=== PATIENT | female | born 1995 | race Caucasian/White ===

== ENCOUNTER 2016-07-01 22:32 | Emergency (ER) | payer BC, OTHER ==
[~2016-07-01] VITALS: Ht 160 cm; Wt 61.2 kg
[~2016-07-01 22:32] MED LIST: BIRTH CONTROL1 EAC1; MACROBID100 M1 PO; MONISTAT DERM2% TP; PRENATAL1 TA2 PO; ZOFRAN ODT4 MG SL
[2016-07-01 23:00] LABS: BASO # 0.1 10*3/uL (0.0-0.1); BASO % 0.9 % (0.0-1.0); EOS # 0.2 10*3/uL (0.0-0.4); EOS % 2.1 % (1.0-4.0); HEMATOCRIT 36.6 % (37.0-47.0); HEMOGLOBIN 12.2 g/dl (12.0-16.0); LYMPH # 3.7 10*3/uL (1.3-4.4); LYMPH % 42.7 % (27.0-41.0); MEAN CELL VOLUME 86.1 fl (81.0-99.0); MEAN CORPUSCULAR HGB 28.7 pg (27.0-31.0); MEAN CORPUSCULAR HGB CONC 33.3 g/dl (33.0-37.0); MEAN PLATELET VOLUME 10.4 fl (9.6-12.3); MONO # 0.8 10*3/uL (0.1-1.0); MONO % 8.6 % (3.0-9.0); NEUT % 45.5 % (47.0-73.0); PLATELET COUNT AUTOMATED 241 10*3/uL (130-400); RED BLOOD COUNT 4.25 10*6/uL (4.10-5.10); RED CELL DISTRI WIDTH 12.9 % (0-14.5); WHITE BLOOD COUNT 8.8 10*3/uL (4.8-10.8)
[2016-07-01 23:08] LABS: BILIRUBIN NEGATIVE (NEGATIVE); BLOOD 3+ (NEGATIVE); CLARITY CLOUDY (CLEAR); COLOR YELLOW (YELLOW); GLUCOSE NEGATIVE (NEGATIVE); KETONE NEGATIVE (NEGATIVE); LEUKO ESTERASE TRACE (NEGATIVE); NITRITE NEGATIVE (NEGATIVE); PROTEIN 1+ (NEGATIVE); SPECIFIC GRAVITY 1.015 (1.005-1.030)
[2016-07-01 23:14] LABS: RBC TNTC rbc/hpf (0-2)
[2016-07-01 23:15] LABS: BACTERIA 4+; EPITHELIAL CELLS TNTC; MUCOUS 1+; URINE REFLEX COMMENT YES (NO)
[2016-07-01 23:16] LABS: ALBUMIN 3.9 gm/dl (3.1-4.5); ALKALINE PHOSPHATASE 76 U/L (45-117); BILIRUBIN, TOTAL 0.3 mg/dl (0.2-1.0); BUN 16 mg/dl (7-24); CARBON DIOXIDE 27 mmol/L (21-32); CHLORIDE 108 mmol/L (98-107); EST GLOM FILT AFRICAN AMERICAN > 60 ml/min; GLUCOSE 95 mg/dL (65-99); POTASSIUM 4.1 mmol/L (3.5-5.1); SGOT/AST 9 IU/L (3-35); SGPT/ALT 18 U/L (12-78); SODIUM 143 mmol/L (136-145); TOTAL PROTEIN 7.3 gm/dL (6.4-8.2)
[2016-07-01] MEDS ORDERED: NAPROSYN500 MG PO (23:58)
[2016-07-01] MEDS ORDERED: FLOMAX0.4 MG PO (23:58)
[2016-07-01] MEDS ORDERED: ZOFRAN ODT4 MG SL (23:58)
[2016-07-01] MEDS ORDERED: KETOROLAC10 MG PO (23:58)
[2016-07-01] MEDS ORDERED: MACROBID100 M1 PO (23:58)
== END 2016-07-02 00:02 | disposition home or self-care (01) ==
LOC: ED 22:32
PROVIDERS: Nurse Practitioner Family
DX: N39.0 Urinary tract infection, site not specified (principal); N20.1 Calculus of ureter; Z91.018 Allergy to other foods

== ENCOUNTER 2017-06-14 23:12 | Emergency (ER) | payer OTHER ==
[~2017-06-14] VITALS: Ht 157.4 cm; Wt 61.2 kg
[~2017-06-14 23:12] MED LIST changes: +FLOMAX0.4 MG PO; +KETOROLAC10 MG PO; +NAPROSYN500 MG PO
[2017-06-14 23:33] LABS: BILIRUBIN NEGATIVE (NEGATIVE); BLOOD TRACE-INTACT (NEGATIVE); CLARITY SL CLOUDY (CLEAR); COLOR YELLOW (YELLOW); GLUCOSE NEGATIVE (NEGATIVE); KETONE TRACE (NEGATIVE); LEUKO ESTERASE TRACE (NEGATIVE); NITRITE NEGATIVE (NEGATIVE); PH 5.5 (5.0-9.0); SPECIFIC GRAVITY 1.025 (1.005-1.030)
[2017-06-14 23:38] LABS: BACTERIA 3+
[2017-06-14 23:39] LABS: EPITHELIAL CELLS 21-30
[2017-06-14] MEDS ORDERED: MACROBID100 M1 PO (23:54)
== END 2017-06-15 00:40 | disposition home or self-care (01) ==
LOC: ED 23:12
PROVIDERS: Student in an Organized Health Care Education/Training Program
DX: N39.0 Urinary tract infection, site not specified (principal); Z91.018 Allergy to other foods

== ENCOUNTER 2019-04-14 11:01 | Emergency (ER) | payer OTHER ==
[~2019-04-14] VITALS: Ht 157.4 cm; Wt 61.7 kg
[~2019-04-14 11:01] MED LIST changes: +CYCLOBENZAPRINE5 M3 PO; +MEDROL DOSEPAK4 MG PO
[2019-04-14 11:44] LABS: BILIRUBIN NEGATIVE (NEGATIVE); BLOOD 2+ (NEGATIVE); CLARITY SL CLOUDY (CLEAR); COLOR YELLOW (YELLOW); GLUCOSE NEGATIVE (NEGATIVE); KETONE NEGATIVE (NEGATIVE); LEUKO ESTERASE TRACE (NEGATIVE); NITRITE NEGATIVE (NEGATIVE); SPECIFIC GRAVITY <= 1.005 (1.005-1.030); UROBILINOGEN 0.2 E.U./dl (0.2-1.0)
[2019-04-14 12:00] LABS: BACTERIA 2+
[2019-04-14 12:01] LABS: EPITHELIAL CELLS 20-30
[2019-04-14 12:40] LABS: BASO # 0.1 10*3/uL (0.0-0.1); BASO % 1.1 % (0.0-1.0); EOS # 0.1 10*3/uL (0.0-0.4); EOS % 1.5 % (1.0-4.0); HEMATOCRIT 39.6 % (37.0-47.0); HEMOGLOBIN 12.9 g/dl (12.0-16.0); LYMPH # 1.9 10*3/uL (1.3-4.4); LYMPH % 30.3 % (27.0-41.0); MEAN CORPUSCULAR HGB 29.7 pg (27.0-31.0); MEAN CORPUSCULAR HGB CONC 32.6 g/dl (33.0-37.0); MEAN PLATELET VOLUME 10.8 fl (9.6-12.3); MONO # 0.4 10*3/uL (0.1-1.0); MONO % 6.2 % (3.0-9.0); NEUT # 3.7 10*3/uL (2.3-7.9); NEUT % 60.7 % (47.0-73.0); PLATELET COUNT AUTOMATED 275 10*3/uL (130-400); RED BLOOD COUNT 4.35 10*6/uL (4.10-5.10); RED CELL DISTRI WIDTH 12.3 % (0-14.5); WHITE BLOOD COUNT 6.1 10*3/uL (4.8-10.8)
[2019-04-14 12:54] LABS: ALBUMIN 3.9 gm/dl (3.1-4.5); ALKALINE PHOSPHATASE 77 U/L (45-117); BUN 12 mg/dl (7-24); CHLORIDE 108 mmol/L (98-107); CREATININE 0.84 mg/dL (0.55-1.02); LIPASE 148 U/L (73-393); SGOT/AST 12 IU/L (3-35); SGPT/ALT 29 U/L (12-78); SODIUM 140 mmol/L (136-145); TOTAL PROTEIN 7.5 gm/dL (6.4-8.2)
[2019-04-14] MEDS ORDERED: IBUPROFEN600 MG PO (14:40)
== END 2019-04-14 14:50 | disposition home or self-care (01) ==
LOC: ED 11:01
PROVIDERS: Physician Assistant
DX: S20.222A Contusion of left back wall of thorax, initial encounter (principal); Z91.018 Allergy to other foods; Z79.2 Long term (current) use of antibiotics; Z79.899 Other long term (current) drug therapy; W50.0XXA Accidental hit or strike by another person, initial encounter; Y93.89 Activity, other specified; Y92.89 Other specified places as the place of occurrence of the external cause; Y99.8 Other external cause status

== ENCOUNTER → 2019-10-11 | Outpatient (CLI) | payer OTHER ==
[~2019-10-11] MED LIST changes: +IBUPROFEN600 MG PO
== END | disposition home or self-care (01) ==
LOC: RAD 13:14
DX: S09.92XD Unspecified injury of nose, subsequent encounter (principal); X58.XXXD Exposure to other specified factors, subsequent encounter

== ENCOUNTER → 2019-10-15 | Outpatient (CLI) | payer OTHER | LOC: CT 09:51 | DX: S02.2XXA Fracture of nasal bones, initial encounter for closed fracture (principal); R93.0 Abnormal findings on diagnostic imaging of skull and head, not elsewhere classified; X58.XXXA Exposure to other specified factors, initial encounter; Y93.89 Activity, other specified; Y92.89 Other specified places as the place of occurrence of the external cause; Y99.8 Other external cause status ==

== ENCOUNTER → 2020-01-28 | Outpatient (CLI) | payer OTHER | END | disposition home or self-care (01) | LOC: US 16:00 | DX: R01.2 Other cardiac sounds (principal); N91.2 Amenorrhea, unspecified ==

== ENCOUNTER 2020-05-27 22:51 | Emergency (ER) | payer OTHER ==
[~2020-05-27] VITALS: Ht 170.1 cm; Wt 61.2 kg
== END 2020-05-28 01:20 | disposition home or self-care (01) ==
LOC: ED 22:51
DX: S01.01XA Laceration without foreign body of scalp, initial encounter (principal); Z91.018 Allergy to other foods; Z79.899 Other long term (current) drug therapy; X58.XXXA Exposure to other specified factors, initial encounter; Y93.89 Activity, other specified; Y92.89 Other specified places as the place of occurrence of the external cause; Y99.8 Other external cause status

== ENCOUNTER 2021-02-23 14:52 | Emergency (ER) | payer OTHER ==
[~2021-02-23] VITALS: Ht 157.4 cm; Wt 49.9 kg
== END 2021-02-23 17:07 | disposition left against medical advice (07) ==
LOC: ED 14:52
DX: S00.12XA Contusion of left eyelid and periocular area, initial encounter (principal); M25.531 Pain in right wrist; Z91.018 Allergy to other foods; W10.8XXA Fall (on) (from) other stairs and steps, initial encounter; Y93.89 Activity, other specified; Y92.89 Other specified places as the place of occurrence of the external cause; Y99.8 Other external cause status

== ENCOUNTER → 2021-07-07 | Outpatient (CLI) | payer OTHER | END | disposition home or self-care (01) | LOC: COVID19 15:52 | PROVIDERS: ATTEND Family Medicine | DX: U07.1 COVID-19 (principal) ==

== ENCOUNTER 2022-12-10 23:53 | Emergency (ER) | payer OTHER ==
[~2022-12-10] VITALS: Ht 160 cm; Wt 55.3 kg
[2022-12-11] MEDS ORDERED: VYVANSE40 MG PO (00:13)
== END 2022-12-11 01:48 | disposition home or self-care (01) ==
LOC: ED 23:53
DX: S01.01XA Laceration without foreign body of scalp, initial encounter (principal); Z91.018 Allergy to other foods; Z98.890 Other specified postprocedural states; Z87.442 Personal history of urinary calculi; W01.10XA Fall on same level from slipping, tripping and stumbling with subsequent striking against unspecified object, initial encounter; Y93.89 Activity, other specified; Y92.009 Unspecified place in unspecified non-institutional (private) residence as the place of occurrence of the external cause; Y99.8 Other external cause status

== ENCOUNTER 2022-12-17 09:15 | Emergency (ER) | payer OTHER ==
[~2022-12-17] VITALS: Ht 160 cm; Wt 54.4 kg
[~2022-12-17 09:15] MED LIST changes: +VYVANSE40 MG PO
== END 2022-12-17 10:20 | disposition home or self-care (01) ==
LOC: ED 09:15
DX: S06.0XAA Concussion with loss of consciousness status unknown, initial encounter (principal); Z87.442 Personal history of urinary calculi; Z91.018 Allergy to other foods; Z98.890 Other specified postprocedural states; W19.XXXA Unspecified fall, initial encounter; Y93.89 Activity, other specified; Y92.89 Other specified places as the place of occurrence of the external cause; Y99.8 Other external cause status

== ENCOUNTER 2024-10-06 07:17 | Emergency (ER) | payer OTHER ==
[~2024-10-06] VITALS: Ht 160 cm; Wt 58.1 kg
[2024-10-06] MEDS ORDERED: MIXED AMPHETAMI15 MG PO (07:25)
[2024-10-06] MEDS ORDERED: Amoxicillin/Clavulanate Pota 875 MG TAB PO ONE (07:40)
[2024-10-06] MEDS ORDERED: Lidocaine Hydrochloride 15 ML UDC PO ONE (07:40)
[2024-10-06] MEDS ORDERED: AMOX-CLAV 875-1 EACH PO (07:46)
[2024-10-06] MEDS ORDERED: IBUPROFEN 600 MG TAB PO ONE (07:55)
== END 2024-10-06 07:48 | disposition home or self-care (01) ==
LOC: ED 07:17
DX: H66.93 Otitis media, unspecified, bilateral (principal); Z20.822 Contact with and (suspected) exposure to COVID-19; Z79.899 Other long term (current) drug therapy; Z91.018 Allergy to other foods; Z98.890 Other specified postprocedural states

== ENCOUNTER → 2025-03-29 | Outpatient (CLI) | payer OTHER ==
[~2025-03-29] MED LIST changes: +AMOX-CLAV 875-1 EACH PO; +MIXED AMPHETAMI15 MG PO
[2025-03-29 17:09] LABS: BASO # 0.1 10*3/uL (0.0-0.1); BASO % 1.2 % (0.0-1.0); EOS # 0.1 10*3/uL (0.0-0.4); EOS % 2.2 % (1.0-4.0); MEAN CELL VOLUME 89.7 fl (81.0-99.0); MEAN CORPUSCULAR HGB 28.3 pg (27.0-31.0); MEAN PLATELET VOLUME 11.5 fl (9.6-12.3); MONO # 0.5 10*3/uL (0.1-1.0); MONO % 8.2 % (3.0-9.0); NEUT # 3.4 10*3/uL (2.3-7.9); NEUT % 57.4 % (47.0-73.0); NUCLEATED RED BLOOD CELL 0.0 % (0.0-0.0); NUCLEATED RED BLOOD CELL 0.0 10*3/uL (0.0-0.0); PLATELET COUNT AUTOMATED 260 10*3/uL (130-400); RED CELL DISTRI WIDTH 12.4 % (0-14.5)
[2025-03-29 17:38] LABS: BUN 13 mg/dl (9-23); LDL CHOLESTEROL 84 mg/dL (9-159); SGPT/ALT 12 U/L (5-49)
== END | disposition home or self-care (01) ==
LOC: ZRHCWE 09:34
PROVIDERS: ATTEND Nurse Practitioner Family
DX: I10 Essential (primary) hypertension (principal); R03.0 Elevated blood-pressure reading, without diagnosis of hypertension; Z13.220 Encounter for screening for lipoid disorders; Z13.29 Encounter for screening for other suspected endocrine disorder; Z00.00 Encounter for general adult medical examination without abnormal findings

== ENCOUNTER → 2025-04-12 | Outpatient (CLI) | payer OTHER | LOC: LAB 16:59 | PROVIDERS: ATTEND Nurse Practitioner Family | DX: N90.89 Other specified noninflammatory disorders of vulva and perineum (principal) ==